=== PATIENT | male | born 1990 | race Caucasian/White ===

== ENCOUNTER 2020-06-26 08:55 | Emergency (ER) | payer OTHER ==
[~2020-06-26] VITALS: Ht 177.8 cm; Wt 80.7 kg
[2020-06-26 08:59] VITALS: BP 134/97
[2020-06-26] MEDS ORDERED: FLEXERIL PO (11:17)
[2020-06-26] MEDS ORDERED: NAPROSYN500 MG PO (11:17)
== END 2020-06-26 11:50 | disposition home or self-care (01) ==
LOC: ER 08:55
DX: S29.012A Strain of muscle and tendon of back wall of thorax, initial encounter (principal); J45.909 Unspecified asthma, uncomplicated; Z88.0 Allergy status to penicillin; Z88.1 Allergy status to other antibiotic agents; X50.1XXA Overexertion from prolonged static or awkward postures, initial encounter; Y93.89 Activity, other specified; Y92.89 Other specified places as the place of occurrence of the external cause; Y99.8 Other external cause status